=== PATIENT | female | born 1990 | race Caucasian/White ===

== ENCOUNTER 2017-10-24 07:54 | Emergency (ER) | payer MEDICARE ==
[~2017-10-24] VITALS: Ht 152.4 cm; Wt 56.7 kg
[2017-10-24 07:59] VITALS: BP 104/74
--- NOTE | 2017-10-24 08:03 | NUR ---
AMBULATES TO BED 11
--- NOTE | 2017-10-24 08:12 | NUR ---
PATIENT PRESENTS TO ED WITH C/O ABDOMINAL PAIN AND NAUSEA. PT STATES ABDOMINAL PAIN STARTED AT 1 AM THIS MORNING . DENIES V/D; SKIN IS PINK/WARM/DRY; AAOX4 WITH EVEN AND STEADY GAIT; HR EVEN AND REGULAR; PT STATED SHE HAD FEVER YESTERDAY BUT IS AFEBRILE AT THIS TIME. DENIES SOB, OR COUGH AT THIS TIME; PATIENT STATES PAIN OF 10/10 AT THIS TIME; VSS; PATIENT POSITIONED FOR COMFORT; HOB ELEVATED; BEDRAILS UP X2; BED DOWN. ER MD MADE AWARE OF PT STATUS.
[2017-10-24] MEDS ORDERED: KETOROLAC 60 MG/2 ML VIAL IM ONE (08:35)
[2017-10-24] MEDS ORDERED: ONDANSETRON 4 MG ODT PO ONE (08:35)
[2017-10-24] MEDS ORDERED: MORPHINE SULFATE 2 MG/ML SYR IM ONE (08:35)
[2017-10-24] MEDS ORDERED: LEVOFLOXACIN 500 MG TAB PO ONE (08:35)
[2017-10-24 09:08] LABS: BILIRUBIN,URINE SMALL (NEGATIVE); BLOOD, URINE TRACE-I (NEGATIVE); NITRITE, URINE POSITIVE (NEGATIVE); UGLUCOSE NEGATIVE (NEGATIVE)
[2017-10-24 09:09] LABS: COLOR,URINE YELLOW (YELLOW)
[2017-10-24 09:23] LABS: BARBITURATE, URINE NEG. ng/ml (NEG <=200); BENZODIAZEPINE, URINE NEG. ng/mL (NEG <=200); CANNABINOID, URINE POS. ng/mL (NEG <=50); COCAINE, URINE NEG. ng/mL (NEG <=300); OPIATE, URINE NEG. ng/mL (NEG <=2000); PHENCYCLIDINE SCREEN,URINE NEG. ng/mL (NEG <=25)
[2017-10-24 09:30] LABS: APPEARANCE,URINE HAZY (CLEAR)
[2017-10-24 09:31] LABS: LEUKOCYTE ESTERASE ,URINE 1+ (NEGATIVE)
[2017-10-24 09:33] LABS: CALCIUM OXALATE CRYSTALS,UR 0-10 /HPF (None Seen)
[2017-10-24 09:34] LABS: RBC,URINE 0-5 (RARE) /HPF (0-5)
[2017-10-24 10:26] VITALS: BP 109/78
--- NOTE | 2017-10-24 10:26 | NUR ---
Patient discharged with v/s stable. Written and verbal after care instructions given and explained. Patient alert, oriented and verbalized understanding of instructions. Ambulatory with steady gait. All questions addressed prior to discharge. ID band removed. Patient advised to follow up with PMD. Rx of VOLTAREN, LEVAQUIN given. Patient educated on indication of medication including possible reaction and side effects. Opportunity to ask questions provided and answered.
== END 2017-10-24 10:26 | disposition home or self-care (01) ==
LOC: MED 07:54
DX: N30.90 Cystitis, unspecified without hematuria (principal); K21.9 Gastro-esophageal reflux disease without esophagitis; I10 Essential (primary) hypertension
CPT/HCPCS: 80305; 81001; 81025; 87086; 87186; 96372; 99284; J1885; J2270; S0119

== ENCOUNTER 2020-06-30 13:43 | Emergency (ER) | payer MEDICARE, OTHER ==
[~2020-06-30] VITALS: Ht 152.4 cm; Wt 56.7 kg
[2020-06-30 13:45] VITALS: BP 132/81
--- NOTE | 2020-06-30 13:55 | NUR ---
Pt taken to bed 5. Pt refused to sit in bed. Pt wants to go outside to get her phone to make a phone call.
--- NOTE | 2020-06-30 14:08 | NUR ---
PATIENT LEFT WITHOUT BEING SEEN BY DR. PUENTE/LIBBY HOWARD. NO FURTHER CARE PROVIDED FOR PATIENT.
--- NOTE | 2020-06-30 14:08 | NUR ---
Pt taken out of bed 5 on tracker due to not returning to the ED. Will wait to see if patient returns but has left the facility as of now.
== END 2020-06-30 14:08 | disposition left against medical advice (07) ==
LOC: MED 13:43
DX: Z11.3 Encounter for screening for infections with a predominantly sexual mode of transmission (principal); Z53.21 Procedure and treatment not carried out due to patient leaving prior to being seen by health care provider

== ENCOUNTER 2022-10-18 21:02 | Emergency (ER) | payer OTHER ==
[~2022-10-18] VITALS: Ht 152.4 cm; Wt 56.7 kg
[2022-10-18 21:12] VITALS: BP 124/68; PULSE 88; RESP 16; TEMP 97.4; O2SAT 100
--- NOTE | 2022-10-18 21:17 | NUR ---
TO LOBBY FOLLOWING TRIAGE
--- NOTE | 2022-10-18 22:32 | NUR ---
PT AMBULATED TO 01
--- NOTE | 2022-10-18 22:40 | NUR ---
pt resting on bed, a/ox4. not in distress. chest rise and fall symmetrical. on monitor. oriented to call light and within reach. bed locked lowest position. side rails x2 for safety. placed on moderate high back rest.
[2022-10-18] MEDS ORDERED: AZITHROMYCIN 250 MG TAB PO ONE (23:30)
[2022-10-18] MEDS ORDERED: cefTRIAXone 1,000 MG in LIDOCAINE MPF 1% 2.1 ML IM ONE (23:30)
[2022-10-19] MEDS ORDERED: LIDOCAINE MPF 1% 5 ML ONE
[2022-10-19] MEDS ORDERED: cefTRIAXone 1,000 MG VIAL ONE
[2022-10-19] MEDS ORDERED: VIB100 PO (00:10)
[2022-10-19 00:20] VITALS: BP 120/68; PULSE 90; RESP 16; TEMP 97.4; O2SAT 100
--- NOTE | 2022-10-19 00:20 | NUR ---
Patient discharged with v/s stable. Written and verbal after care instructions given and explained by dr. linton. Patient verbalized understanding. Ambulatory with steady gait. All questions addressed prior to discharge. Advised to follow up with PMD.
== END 2022-10-19 00:20 | disposition home or self-care (01) ==
LOC: MED 21:02
DX: Z20.2 Contact with and (suspected) exposure to infections with a predominantly sexual mode of transmission (principal)
CPT/HCPCS: 87491; 96372; 99283; J0696; J2001

== ENCOUNTER 2023-01-21 00:07 | Emergency (ER) | payer OTHER ==
[~2023-01-21] VITALS: Ht 152.4 cm; Wt 59.0 kg
[~2023-01-21 00:07] MED LIST: VIB100 PO
[2023-01-21 00:16] VITALS: BP 116/74; PULSE 108; RESP 18; TEMP 98.4; O2SAT 99
[2023-01-21] MEDS ORDERED: CEPH-588 PO (01:47)
[2023-01-21] MEDS ORDERED: IBUP-2213 PO (01:47)
== END 2023-01-21 01:07 | disposition home or self-care (01) ==
LOC: MED 00:07
DX: S40.012A Contusion of left shoulder, initial encounter (principal); I80.8 Phlebitis and thrombophlebitis of other sites; F11.20 Opioid dependence, uncomplicated; R22.1 Localized swelling, mass and lump, neck; Z79.1 Long term (current) use of non-steroidal anti-inflammatories (NSAID); Z79.2 Long term (current) use of antibiotics; X58.XXXA Exposure to other specified factors, initial encounter; Y92.89 Other specified places as the place of occurrence of the external cause; Y93.89 Activity, other specified; Y99.8 Other external cause status
CPT/HCPCS: 71045; 99284; Q0092